=== PATIENT | male | born 1970 | race Caucasian/White ===

== ENCOUNTER 2022-07-18 08:17 | Day surgery (SDC) | payer MEDICARE, OTHER ==
[~2022-07-18] VITALS: Ht 167.6 cm; Wt 73.6 kg
[2022-07-18 08:33] VITALS: BP 151/105; PULSE 71; TEMP 98
[2022-07-18] MEDS ORDERED: BENICAR40 MG PO (08:51)
[2022-07-18] MEDS ORDERED: NORVASC 5MG5 MG/TAB PO (08:51)
[2022-07-18] MEDS ORDERED: BYSTOLIC2.5 MG PO (08:51)
[2022-07-18] MEDS ORDERED: KEPPRA1000 MG PO (08:52)
[2022-07-18] MEDS ORDERED: TEGRETOL-XR400 MG PO (08:52)
[2022-07-18] MEDS ORDERED: FISH OIL 1000MG1 CAP PO (08:53)
--- NOTE | 2022-07-18 09:07 | NUR ---
PATIENT ARRIVES AMBULATORY ACCOMPANIED BY FATHER TIM. PATIENT IS ABLE TO ANSWER QUESTIONS APPROPRIATELY AND SIGN HIS OWN CONSENTS.
[2022-07-18 10:00] VITALS: BP 139/96; PULSE 63
--- NOTE | 2022-07-18 10:25 | NUR ---
0945- PATIENT RETURNS TO [facility] VIA CART. PT AWAKE AND ALERT. RESPIRATIONS UNLABORED. AMBULATED TO RECLINER CHAIR WITH 2:1 SBA. PT DENIES NAUSEA OR ABDOMINAL PAIN. HOOKED UP TO MONITOR AND VS OBTAINED. CALL LIGHT AT SIDE AND FATHER PRESENT. 0950- DR. GADIEL BONILLA IN ROOM SPEAKING WITH PATIENT. 0952- PATIENT TOLERATING ORANGE JUICE AND WARM MUFFIN WITHOUT NAUSEA. 1003- DID NOT PRINT OFF D/C INTSTRUCTIONS, SO THE INTERSTRUCTIONS WERE GIVEN VERBALLY BY THIS NURSE. PATIENT AND FATHER VERBALIZED UNDERSTANDING OF THEM. A COPY OF THE PROCEDURE REPORT AND EDUCATIONAL SHEETS WERE GIVEN IN FOLDER TO TAKE HOME. 1010- PATIENT DRESSES SELF WITH HIS FATHER'S SUPERVISION. 1020- PATIENT DISCHARGED FROM UNIT VIA W/C TO A PERSONAL VEHICLE. PT LEFT HOSPITAL IN STABLE CONDITION.
== END 2022-07-18 10:20 | disposition home or self-care (01) ==
LOC: SDCO 08:17
DX: Z12.11 Encounter for screening for malignant neoplasm of colon (principal); K52.3 Indeterminate colitis; K63.89 Other specified diseases of intestine
CPT/HCPCS: J2704